=== PATIENT | male | born 1955 ===

== ENCOUNTER 2023-02-06 11:03 | Outpatient (AMB) | payer MEDICARE, OTHER, SELFPAY ==
--- NOTE | 2023-02-05 14:50 | ...WebTmpl.AM.PHNO ---
PHQ-9 Over the last 2 weeks, how often have you been bothered by any of the following problems? 1. Little interest or pleasure in doing things: not at all 2. Feeling down, depressed, or hopeless: not at all 3. Trouble falling or staying asleep, or sleeping too much: not at all 4. Feeling tired or having little energy: not at all 5. Poor appetite or overeating: not at all 6. Feeling bad about yourself - or that you are a failure or have let yourself or your family down: not at all 7. Trouble concentrating on things, such as reading the newspaper or watching television: not at all 8. Moving or speaking so slowly that other people could have noticed. Or the opposite - being so fidgety or restless that you have been moving around a lot more than usual: not at all 9. Thoughts that you would be better off or of hurting yourself in some way: not at all Total score: 0 Depression Screening Interpretation: Negative Source: Developed by Drs. Manjinder Avila, Walter Ruby and colleagues, with an educational sanjeev from [employer]. LEANDRO-7 AMB Questionnaire LEANDRO-7 Date LEANDRO - 7 assessed: 02/05/23 Feeling nervous, anxious, or on edge: 0 = Not at all Not being able to stop or control worryin = Not at all Worrying too much about different things: 0 = Not at all Trouble relaxin = Not at all Being so restless that it is hard to sit still: 0 = Not at all Becoming easily annoyed or irritable: 0 = Not at all Feeling afraid as if something awful might happen: 0 = Not at all Total LEANDRO-7 score (0-4 normal; 5-9 mild; 10-14 moderate; 15-21 severe): 0 Source: Developed by Drs. Manjinder Avila, Walter Ruby and colleagues, with an educational sanjeev from [employer]. Thrive Questionnaire Date Thrive assessed: 02/05/23 I am a: Patient What is your living situation today?: I have a steady place to live Within the past 12 months, did the food you bought not last and you didn't have the money to get more?: Never true Within the past 12 months, did you worry whether your food would run out before you got money to buy more?: Never true Do you have trouble paying for medicines?: No Do you have trouble getting transportation to medical appointments?: No Do you have trouble paying your heating and electricity bill?: No Do you have trouble taking care of your child, family member or friend?: No Do you have trouble with day-to-day activities such as bathing, preparing meals, shopping, managing finances, etc.?: No Are you currently unemployed and looking for a job?: No Are you interested in more education?: No Please select the resources that you would like help with: None Currently or been in a relationship where the following occur: no concerns reported
--- NOTE | 2023-02-06 11:13 | MHC.PC.OV ---
Vital Signs 02/06/23 11:14 Height 6 ft Weight 267 lb 8 oz BMI 36.3 BP 120/80 Blood Pressure Location Rt brachial Position Sitting Respiration 12 Pulse 90 Pulse Source Pulse Oximeter Temp 97.9 F Temp Source Temporal Artery Scan Pulse Oximetry (%) 98 Oxygen Delivery Method Room Air Intake Visit Reasons: est care Intake Note: Patient states that he had a ruptured disk 2 months ago and would like an order for an MRI put in. Patient states he hasnt seen primary care in almost 10 years. Patient states that he would also be interested in PT as well and use to do PT before. Flare Breaker Required: No Accompanied by: Self / Same As Patient Allergies No Known Allergies Allergy (Verified 02/06/23 11:54) Medication List - Last Reconciled 02/06/23 by Nani Porras CNP isosorbide mononitrate ER 30 mg PO DAILY lisinopril 2.5 mg PO DAILY Tobacco use date assessed: 02/06/23 Fall risk assessment: No Falls in past year Last assessed Fall Risk: 02/06/23 Dental Screening Dental Screen Date: 02/06/23 Did you have a dental visit in the last 12 months?: Yes Did you have a dental problem in the last 6 months where you did not have access to dental care?: No Was dental information given to patient?: Patient has dentist HPI HPI Comments History of Present Illness Details 67-year-old male presents to [facility] care He notes he states he was last seen by his former PCP and had blood work done in almost 10 years He reports PMH significant for HTN and CAD with stent placement 9 years ago. He reports h/o ruptured L2 and L3. He notes that he started experiencing pain to his lumbar spin when loading a motorcycle in a pickup truck 2 months ago. He notes he had PT x 4 weeks with significant improvement. He requests a new PT referral. He reports associated numbness ot his RLE. He denies pain at this time. [facility] Medical History (Updated 02/06/23 @ 12:12 by Nani Porras CNP) High blood pressure No pertinent past medical history Presence of stent in LAD coronary artery Surgical History (Updated 02/06/23 @ 11:30 by Marylin Fu MA) History of coronary artery stent placement No pertinent past surgical history Family History (Updated 02/06/23 @ 11:27 by Marylin Fu MA) Maternal Grandmother Diabetes Mother Cancer Social History Housing: House Patient Tobacco Use Status: Never used Tobacco service: Yes Current occupational status: retired Cognitive needs: No Hearing needs: No Vision needs: No Questionnaire PHQ-9 Over the last 2 weeks, how often have you been bothered by any of the following problems? 1. Little interest or pleasure in doing things: not at all 2. Feeling down, depressed, or hopeless: not at all 3. Trouble falling or staying asleep, or sleeping too much: not at all 4. Feeling tired or having little energy: not at all 5. Poor appetite or overeating: not at all 6. Feeling bad about yourself - or that you are a failure or have let yourself or your family down: not at all 7. Trouble concentrating on things, such as reading the newspaper or watching television: not at all 8. Moving or speaking so slowly that other people could have noticed. Or the opposite - being so fidgety or restless that you have been moving around a lot more than usual: not at all 9. Thoughts that you would be better off or of hurting yourself in some way: not at all Total score: 0 Depression Screening Interpretation: Negative Source: Developed by Drs. Manjinder Avila, Elma Richey, Walter Patel and colleagues, with an educational sanjeev from [employer]. Thrive Questionnaire Date Thrive assessed: 02/06/23 I am a: Patient What is your living situation today?: I have a steady place to live Within the past 12 months, did the food you bought not last and you didn't have the money to get more?: Never true Within the past 12 months, did you worry whether your food would run out before you got money to buy more?: Never true Do you have trouble paying for medicines?: No Do you have trouble getting transportation to medical appointments?: No Do you have trouble paying your heating and electricity bill?: No Do you have trouble taking care of your child, family member or friend?: No Do you have trouble with day-to-day activities such as bathing, preparing meals, shopping, managing finances, etc.?: No Are you currently unemployed and looking for a job?: No Are you interested in more education?: No Please select the resources that you would like help with: None Currently or been in a relationship where the following occur: no concerns reported AUDIT C Alcohol Use Questionnaire (AUDIT-C) 1. How often do you have a drink containing alcohol?: Monthly or less 2. How many drinks containing alcohol do you have on a typical day when you are drinking?: 1 or 2 3. How often do you have six or more drinks on one occasion?: Never Total Score: 1 LEANDRO-7 AMB Questionnaire LEANDRO-7 Date LEANDRO - 7 assessed: 02/06/23 Feeling nervous, anxious, or on edge: 0 = Not at all Not being able to stop or control worryin = Not at all Worrying too much about different things: 0 = Not at all Trouble relaxin = Not at all Being so restless that it is hard to sit still: 0 = Not at all Becoming easily annoyed or irritable: 0 = Not at all Feeling afraid as if something awful might happen: 0 = Not at all Total LEANDRO-7 score (0-4 normal; 5-9 mild; 10-14 moderate; 15-21 severe): 0 Source: Developed by Drs. Manjinder Avila, Elma Richey, Walter Patel and colleagues, with an educational sanjeev from [employer]. Review of Systems Const Details: Const Denies chills, Denies fatigue, Denies fever(s), Denies headache(s) and Denies weakness ENT Denies dizziness and Denies headache(s) Card Denies chest pain, Denies lightheadedness, Denies dyspnea and Denies other (Palpitations) Resp Denies cough, Denies dyspnea, Denies wheezing and Denies other ( shortness of breath) GI Denies abdominal pain, Denies melena, Denies hematochezia, Denies change in bowel habits, Denies dyspepsia and Denies nausea Denies hematuria and Denies dysuria Musc Denies abnormal gait, Denies myalgias, Denies arthralgias, Reports numbness and Denies tingling Skin/Breast Denies rash, Denies unusual bruising and Denies wounds Neuro Denies abnormal gait, Denies dizziness, Denies headache(s), Denies memory loss, Reports numbness, Denies Sensory deficit (Neuro), Denies tingling and Denies weakness Psych Denies anxiety, Denies depression, Denies memory loss Endo Denies cold intolerance, Denies fatigue, Denies heat intolerance, Denies polydipsia and Denies polyuria Aller/Immun Denies wheezing Physical exam (Primary Care) Vital Signs: Last Vital Signs Temp 97.9 F 02/06/23 11:14 Pulse 90 02/06/23 11:14 Resp 12 02/06/23 11:14 BP 120/80 02/06/23 11:14 Pulse Ox 98 02/06/23 11:14 Oxygen Delivery Method Room Air 02/06/23 11:14 BMI result Body Mass Index 36.3 Tobacco/Smoking Status: Tobacco use Status Tobacco use date assessed 02/06/23 02/06/23 11:25 Patient Tobacco Use Status Never used Tobacco 02/06/23 11:25 PHQ-9: PHQ-9 Score PHQ-9: Total score 0 02/06/23 11:25 Depression Screening Interpretation: Negative Thrive Assessment: Date of Thrive Assessment Date Thrive assessed 02/06/23 02/06/23 11:25 Currently or been in a relationship where the following occur: no concerns reported Const Other: General: no acute distress and well developed Nutritional Appearance: well nourished Orientation/consciousness: patient oriented x3 HENMT Head: Yes normocephalic and Yes atraumatic Eyes General: appearance normal, both eyes and all related structures Pupils: Equal, round and reactive pupils present EOM: EOMs intact bilaterally Resp Effort & Inspection: normal respiratory effort Auscultation: clear to auscultation bilaterally Cardio Rate: regular rate Rhythm: regular rhythm Heart sounds: S1 normal heart sound present, S2 normal heart sound present, no gallops, no murmurs and no rubs GI Palpation (GI): No Abdominal aortic bruit present, Soft to palpation, nontender, No hepatosplenomegaly present and No Rebound tenderness present Auscultation: normal bowel sounds General: Yes no CVA tenderness Back/Spine/Pelvis Back: no CVA tenderness Cervical Spine: cervical ROM normal and No Cervical spine tenderness Thoracic/Lumbar Spine: thoraco-lumbar ROM normal, No pain with thoraco-lumbar ROM, No thoracic spinal tenderness and No lumbar spinal tenderness Extrem General: Yes normal to inspection, No edema and No calf tenderness Skin General: warm and dry. Normal skin color. Normal skin turgor Lesions: no lesions Rashes: no rashes Trauma: no lacerations or abrasions Wounds: no wounds Nails: normal Neuro General: patient oriented x3, gait normal and no focal neuro deficit Cranial nerves: Yes Equal, round and reactive pupils present Cognition (Neuro): normal cognition Gait exam (Neuro): Normal gait present Sensory Exam: No Sensory deficit (Neuro) Psych Appearance: grossly normal Affect: normal affect Attitude: cooperative Thought process: Normal thought process present Assessment and Plan Assessment & Plan (1) Low back pain: Code(s): M54.50 - Low back pain, unspecified Plan: Reports h/o ruptured L2 and L3. He notes that he started experiencing pain to his lumbar spin when loading a motorcycle in a pickup truck 2 months ago. He notes he had PT x 4 weeks with significant improvement. He requests a new PT referral. He reports associated numbness ot his RLE. He denies pain at this time. Normal exam X-ray of lumbar spine ordered Referred to PT and Orthopedic surgery May take Tylenol ibuprofen for pain or discomfort Follow-up with worsening or new symptoms Verbalized understanding and agreed with treatment plan. (2) High blood pressure: Code(s): I10 - Essential (primary) hypertension Plan: Blood pressure is 120/80, within goal of less than 130/80 Continue take isosorbide mononitrate and lisinopril as prescribed Low-sodium diet encouraged Follow-up in 1 month for complete physical exam Return sooner with symptoms or concerns Verbalized understanding and agreed with treatment plan. (3) Laboratory tests ordered as part of a complete physical exam (CPE): Code(s): Z00.00 - Encounter for general adult medical examination without abnormal findings Plan: Fasting labs ordered as part of a complete physical exam. Advised to fast for at least 10 hours before getting labs drawn. May drink water Verbalized understanding and agreed with treatment plan. Orders: Orders Comprehensive Timblin. Panel Fast Today Z00.00 - Encounter for general adult medical examination without abnormal findings Lipid Panel Today Z00.00 - Encounter for general adult medical examination without abnormal findings TSH reflex Free T4 Today Z00.00 - Encounter for general adult medical examination without abnormal findings Complete Blood Count Auto Diff Today Z00.00 - Encounter for general adult medical examination without abnormal findings UA CC w/rflx Micro + Cult Today Z00.00 - Encounter for general adult medical examination without abnormal findings PT Evaluation and Treatment Today M54.50 - Low back pain, unspecified XR lumbar spine 2-3V Today M54.50 - Low back pain, unspecified PSA, Ultra Sensitive Today Z00.00 - Encounter for general adult medical examination without abnormal findings Referrals Orthopedics Referral M54.50 - Low back pain, unspecified Coding Level of Care Code New Pt Level 3 (48936) Diagnoses Low back pain M54.50 High blood pressure I10 Laboratory tests ordered as part of a complete physical exam (CPE) Z00.00
[2023-02-06 11:14] VITALS: BP 120/80; PULSE 90; RESP 12; TEMP 36.6; O2SAT 98; BMI 36.3
== END 2023-02-06 12:13 | disposition home or self-care (01) ==
PROVIDERS: Visit Provider Nurse Practitioner Family
DX: M54.50 Low back pain, unspecified (principal); I10 Essential (primary) hypertension; Z00.00 Encounter for general adult medical examination without abnormal findings
CPT/HCPCS: 99203

== ENCOUNTER 2023-02-07 09:44 | Outpatient (REF) | payer MEDICARE, OTHER, SELFPAY ==
--- NOTE | ~2023-02-07 | XR_ITS ---
EXAMINATION: XR LUMBOSACRAL SPINE CLINICAL INFORMATION: Lower back pain. COMPARISON: None available. TECHNIQUE: AP and lateral views of the lumbar spine and lateral view of the lumbosacral junction. FINDINGS: There is bony demineralization. There is a slight lumbar levoscoliosis. At L5-S1, there is moderate disc space narrowing. The remaining disc spaces are relatively well-maintained. No acute fracture or spondylolisthesis is seen. There is multi-level thoracolumbar spondylosis. There is facet arthropathy, most pronounced at L5-S1. There are aortoiliac atherosclerotic calcifications. XR/XR lumbar spine 2-3V IMPRESSION: 1. There is moderate degenerative disc disease at L5-S1. 2. There is multi-level mild lumbar spondylosis. 3. Facet arthropathy is most pronounced at L5-S1. 4. There is a slight lumbar levoscoliosis.
[2023-02-07 13:18] LABS: MANUAL DIFF FLAG NO
[2023-02-07 13:51] LABS: Basophils Percent Auto 0.3 % (0-2); Eosinophils Absolute Auto 0.2 X10*3/uL (0.0-0.4); Eosinophils Percent Auto 3.6 % (0-4); Hematocrit 42.1 % (42.0-52.0); Imm Gran Abs Auto 0.02 X10*3/uL (0.00-0.03); Imm Gran Pct Auto 0.3 % (0.0-0.4); Lymphocytes Absolute Auto 1.9 X10*3/uL (1.2-4.9); Lymphocytes Percent Auto 30.1 % (20-40); Mean Corpuscular HGB Conc 33.3 g/dl (31.0-36.0); Mean Corpuscular Hemoglobin 30.4 pg (27.0-33.0); Mean Corpuscular Volume 91.5 fL (80.0-98.0); Mean Platelet Volume 9.6 fL (9.4-12.4); Monocytes Absolute Auto 0.7 X10*3/uL (0.1-1.2); Monocytes Percent Auto 10.7 % (2-11); Neutrophils Absolute Auto 3.4 x10*3/uL (2.0-8.3); Platelet Count 322 X10*3/uL (160-400); Red Cell Distribution Width 13.2 % (11.0-16.0); White Blood Count 6.2 X10*3/uL (4.8-10.8)
[2023-02-07 14:05] LABS: Appearance Urine Turbid; Color Urine Yellow; Glucose Urine UA Negative (Negative); Leukocyte Esterase Urine Negative (Negative); Nitrite Urine Negative (Negative); PH 5.5 (5.0-9.0); Urine Blood Negative (Negative); Urine Ketones Negative (Negative); Urine Protein Negative (Neg-Trace)
[2023-02-07 14:30] LABS: Alanine Aminotransferase 27 U/L (0-40); Albumin Level 4.3 g/dL (3.5-5.0); Alkaline Phosphatase 62 U/L (39-117); Anion Gap 12 (12-20); Aspartate Amino Transferase 23 U/L (5-37); Bilirubin Total 0.5 mg/dL (0.0-1.0); Blood Urea Nitrogen 15 mg/dL (9-16); Carbon Dioxide 26 mmol/L (22-29); Chloride 106 mmol/L (96-108); Cholesterol 263 mg/dL (<200); Estimated Glomerular Filt Rate > 60; Glucose Fasting 104 mg/dL (60-99); HDL Cholesterol 47 mg/dL (>40); LDL Cholesterol Calculated 186 mg/dL (<100); Potassium 4.4 mmol/L (3.3-5.1); Sodium 140 mmol/L (135-145); Total Protein 7.3 g/dL (6.5-8.0); Triglycerides 150 mg/dL (<150)
[2023-02-07 14:34] LABS: TSH reflex Free T4 1.13 uIU/mL (0.32-4.0)
[2023-02-11 20:14] LABS: PSA, Ultra Sensitive 0.07 ng/mL
== END 2023-02-07 09:45 | disposition home or self-care (01) ==
LOC: HO.HMGCX 09:44
PROVIDERS: Visit Provider Nurse Practitioner Family
DX: M54.50 Low back pain, unspecified (principal); Z00.00 Encounter for general adult medical examination without abnormal findings; Z12.5 Encounter for screening for malignant neoplasm of prostate
CPT/HCPCS: 36415; 72100; 80053; 80061; 81003; 84153; 84443; 85025

== ENCOUNTER 2023-02-21 09:24 | Outpatient (AMB) | payer MEDICARE, OTHER, SELFPAY ==
[2023-02-21 09:39] VITALS: BMI 36.2
--- NOTE | 2023-02-21 09:39 | A.OFFVIS_ITS ---
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 States pain started in November 29, 2022 while getting out of a car in [place]. States his bad had locked and had to crawl. States he was seen with a chiropractor and was told he had a rupture disc. Attend P.T for about 3 weeks with no improvement. Currently he is better. He still has difficulty from sit to stand and nerve pain in his right leg. Allergies No Known Allergies Allergy (Verified 02/21/23 09:48) Medication List - Last Reconciled 02/21/23 by Viky Xiao MD isosorbide mononitrate ER 30 mg PO DAILY lisinopril 2.5 mg PO DAILY HPI HPI Comments History of Present Illness Details 25 years ago, had lifting injury and teresa t his back. No imaging. Got better and was doing well up until November 2022. He was crawling from pain. Was more right sided. With PT, 1st session in December, started having right leg pain with weakness. Severe for 3 weeks. Needed a cane, would give out and felt like nerve pain . Slightly better now, unless comfortable sleeping. Is walking better. No bladder/bowel changes. No numbness. Was not able to do further PT. Tried NSAIDs and muscle relaxers. [facility] Medical History (Updated 02/21/23 @ 10:23 by Viky Xiao MD) Presence of stent in LAD coronary artery High blood pressure No pertinent past medical history Surgical History (Updated 02/06/23 @ 11:30 by Marylin Fu MA) History of coronary artery stent placement No pertinent past surgical history Family History (Updated 02/06/23 @ 11:27 by Marylin Fu MA) Maternal Grandmother Diabetes Mother Cancer Social History Housing: House Patient Tobacco Use Status: Never used Tobacco service: Yes Current occupational status: retired Cognitive needs: No Hearing needs: No Vision needs: No Review of Systems Const All systems reviewed & are unremarkable except as noted in HPI and below Physical Exam Vital Signs: BMI result Body Mass Index 36.2 Constitutional: Patient appears to be in no acute distress, well nourished and well developed. Patient was appropriately conversant and oriented. Good historian. MSK: No specific abnormalities found on inspection of the spine and all extremities. No pain with palpation over the lumbar area. SI and GT nontender. Lumbar ROM was full. Bilateral hip, knee and ankle ROM WNL. No ligamentous laxity or crepitance. No increased effusion. Straight-leg raising test positive on right, positive crossover from left. FABERE test bilateral contributed the right thigh pain. Strength is 5/5 in all muscle groups tested. No increased tone noted. Neurological: Neurologic examination of the upper and lower extremities was nonfocal with intact sensation, muscle stretch reflexes and without focal motor deficits . Ortiz?s negative bilaterally. Babinski was down going bilaterally. Clonus was negative. Gait is non-antalgic without loss of balance. Able to stand on heels and toes with support. 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 Pain has somewhat subsided. Improved functional and gait level. However still signs of nerve impingement on exam. No other neurological deficits. It would be reasonable to obtain a lumbar MRI to evaluate are confirm presence of disc herniation L5-S1. It will help us with prognosis, guidance for physical therapy, determine need for injection and/or surgery. MR order placed. Assessment and plan discussed with patent, and patient was agreeable. All questions were answered thoroughly. Follow-up after MRI. Orders: Orders MR lumbar spine wo con Today M51.26 - Other intervertebral disc displacement, lumbar region, M51.36 - Other intervertebral disc degeneration, lumbar region, M54.16 - Radiculopathy, lumbar region Coding Level of Care Code New Pt Level 4 (91866) Diagnoses Lumbar radiculitis M54.16 Degeneration of lumbar intervertebral disc with acute herniation M51.36; M51.26
== END 2023-02-21 10:13 | disposition home or self-care (01) ==
PROVIDERS: Visit Provider Physical Medicine & Rehabilitation
DX: M54.16 Radiculopathy, lumbar region (principal); M51.36 Other intervertebral disc degeneration, lumbar region; M51.26 Other intervertebral disc displacement, lumbar region
CPT/HCPCS: 99204

== ENCOUNTER → 2023-02-21 09:24 | Outpatient (BNVA) | payer MEDICARE, OTHER, SELFPAY | PROVIDERS: Visit Provider Physical Medicine & Rehabilitation ==

== ENCOUNTER 2023-03-12 19:19 | Outpatient (REF) | payer MEDICARE, OTHER, SELFPAY ==
--- NOTE | ~2023-03-12 | MR_ITS ---
EXAMINATION: MR LUMBAR SPINE WITHOUT CONTRAST CLINICAL INFORMATION: Radiculopathy, evaluate for L5-S1 right-sided disc herniation. COMPARISON: None TECHNIQUE: MRI of the lumbar spine was obtained using routine sequences without contrast. FINDINGS: Mild leftward curvature of the lower lumbar spine. Lumbar straightening. No significant spondylolisthesis No suspicious marrow signal or focal osseous lesion. Mild edema along the right L4 superior endplate associated with a small Schmorl's node. The vertebral body heights are maintained. Multilevel disc desiccation and height loss. The conus medullaris terminates at the level of L1. The distal spinal cord is normal in appearance. The cauda equina nerve roots appear normal. No significant abnormalities of the paraspinal musculature. Limited evaluation of the intra-abdominal structures without significant abnormalities. The abdominal aorta is of normal contour and caliber. SPINAL LEVELS: L1-L2: No significant spinal canal or neuroforaminal narrowing. Minimal disc bulge. L2-L3: No significant spinal canal or neuroforaminal narrowing. Shallow disc bulge. L3-L4: Broad-based disc bulge with superimposed right subarticular protrusion which compresses the traversing right L4 nerve root. Mild facet arthropathy. No significant central spinal canal stenosis. Mild right neural foraminal narrowing. L4-L5: Broad-based disc bulge with right foraminal and extraforaminal protrusion, mild facet arthropathy. No significant central spinal canal stenosis. Bilateral subarticular zone narrowing. Mild left and moderate right neural foraminal narrowing with possible impingement of the exiting right L4 nerve root. L5-S1: Left eccentric disc osteophyte complex with far left lateral component and mild facet arthropathy. No significant central spinal canal stenosis. Moderate left neural foraminal narrowing with impingement of the extraforaminal left L5 nerve root MR/MR lumbar spine wo con IMPRESSION: 1. At L3-L4, a right subarticular disc protrusion compresses the traversing right L4 nerve root. 2. At L4-L5, a right foraminal and extraforaminal disc protrusion results in moderate right neural foraminal narrowing with possible impingement of the exiting right L4 nerve root. 3. At L5-S1, a left eccentric disc osteophyte complex results in moderate left neural foraminal narrowing with impingement of the extraforaminal left L5 nerve root.
== END 2023-03-12 19:20 | disposition home or self-care (01) ==
LOC: HO.MRI 19:19
PROVIDERS: Visit Provider Physical Medicine & Rehabilitation
DX: M54.16 Radiculopathy, lumbar region (principal); M51.36 Other intervertebral disc degeneration, lumbar region; M51.26 Other intervertebral disc displacement, lumbar region
CPT/HCPCS: 72148

== ENCOUNTER 2023-04-11 10:00 | Outpatient (AMB) | payer MEDICARE, OTHER, SELFPAY ==
--- NOTE | 2023-04-11 10:13 | MHC.OFFVIS ---
Intake Vital Signs 04/11/23 10:15 Height 6 ft Weight 267 lb BMI 36.2 Intake Visit Reasons: O/V Lumbar MRI review Intake Note: Isaiah 67 yr old male presents today for his MRI review. Allergies No Known Allergies Allergy (Verified 04/11/23 10:15) HPI HPI Comments History of Present Illness Details 25 years ago, had lifting injury and hurt his back. No imaging. Got better and was doing well up until November 2022. He was crawling from pain. Was more right sided. With PT, 1st session in December, started having right leg pain with weakness. Severe for 3 weeks. Needed a cane, would give out and felt like nerve pain . Byt the time I saw him, he was already slightly better now, less comfortable sleeping. Was walking better. No bladder/bowel changes. No numbness. Was not able to do further PT. Tried NSAIDs and muscle relaxers. Here today to discuss MRI results. Was up to 95% but had setback 2 weeks ago. Was working on daughter's car, sitting low and bending forward. Same shooting down to right leg, same numbness on right thigh down to knee. No symptoms on right foot. Good bowel/bladder control. [facility] Medical History (Updated 02/21/23 @ 10:23 by Viky Xiao MD) Presence of stent in LAD coronary artery High blood pressure No pertinent past medical history Surgical History (Updated 02/06/23 @ 11:30 by Marylin Fu MA) History of coronary artery stent placement No pertinent past surgical history Family History (Updated 02/06/23 @ 11:27 by Marylin Fu MA) Maternal Grandmother Diabetes Mother Cancer Social History Housing: House Patient Tobacco Use Status: Never used Tobacco service: Yes Current occupational status: retired Cognitive needs: No Hearing needs: No Vision needs: No Physical Exam Constitutional: Patient appears to be in no acute distress, well nourished and well developed. Patient was appropriately conversant and oriented. Good historian. Results Reviewed Results Reviewed: Ordering Physician: Viky Lewis Date of Service: 03/12/23 Procedure(s): MR lumbar spine wo con Accession Number(s): [id number] cc: Viky Lewis~ EXAMINATION: MR LUMBAR SPINE WITHOUT CONTRAST CLINICAL INFORMATION: Radiculopathy, evaluate for L5-S1 right-sided disc herniation. COMPARISON: None TECHNIQUE: MRI of the lumbar spine was obtained using routine sequences without contrast. FINDINGS: Mild leftward curvature of the lower lumbar spine. Lumbar straightening. No significant spondylolisthesis No suspicious marrow signal or focal osseous lesion. Mild edema along the right L4 superior endplate associated with a small Schmorl's node. The vertebral body heights are maintained. Multilevel disc desiccation and height loss. The conus medullaris terminates at the level of L1. The distal spinal cord is normal in appearance. The cauda equina nerve roots appear normal. No significant abnormalities of the paraspinal musculature. Limited evaluation of the intra-abdominal structures without significant abnormalities. The abdominal aorta is of normal contour and caliber. SPINAL LEVELS: L1-L2: No significant spinal canal or neuroforaminal narrowing. Minimal disc bulge. L2-L3: No significant spinal canal or neuroforaminal narrowing. Shallow disc bulge. L3-L4: Broad-based disc bulge with superimposed right subarticular protrusion which compresses the traversing right L4 nerve root. Mild facet arthropathy. No significant central spinal canal stenosis. Mild right neural foraminal narrowing. L4-L5: Broad-based disc bulge with right foraminal and extraforaminal protrusion, mild facet arthropathy. No significant central spinal canal stenosis. Bilateral subarticular zone narrowing. Mild left and moderate right neural foraminal narrowing with possible impingement of the exiting right L4 nerve root. L5-S1: Left eccentric disc osteophyte complex with far left lateral component and mild facet arthropathy. No significant central spinal canal stenosis. Moderate left neural foraminal narrowing with impingement of the extraforaminal left L5 nerve root MR/MR lumbar spine wo con IMPRESSION: 1. At L3-L4, a right subarticular disc protrusion compresses the traversing right L4 nerve root. 2. At L4-L5, a right foraminal and extraforaminal disc protrusion results in moderate right neural foraminal narrowing with possible impingement of the exiting right L4 nerve root. 3. At L5-S1, a left eccentric disc osteophyte complex results in moderate left neural foraminal narrowing with impingement of the extraforaminal left L5 nerve root. 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 Discrete right-sided disc herniation seen on L3-4, more broad-based disc bulge L4-5 but with lateral extension to right side. Both close to the right L4 nerve root. This is consistent with symptoms right-sided back pain that radiates to right thigh/knee. More broad-based disc bulge L5-S1, going to the left side. Patient denies any symptoms on the left side or to his feet. He knows/understands what activities to avoid so as not to exacerbate his symptoms. He also knows how to modify his activities and rest. He says he is comfortable currently, not in severe pain. Discussed briefly possible injection but he does not think he needs it at this time. I do not see any urgency to refer to neurosurgery. He can take NSAIDs as needed. If severe pain, we can consider oral prednisone short burst. Since he has tolerated meloxicam in the past, will refill meloxicam 7.5 mg daily p.r.n.. Will give 30 tablets which I think he will take sparingly. Always take with full stomach. Other side effects and black box warnings discussed. Assessment and plan discussed with patient, and patient was agreeable. All questions were answered thoroughly. Follow-up as needed. Patient will call for issues. 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
[2023-04-11 10:15] VITALS: BMI 36.2
== END 2023-04-11 10:48 | disposition home or self-care (01) ==
PROVIDERS: PCP Nurse Practitioner Family; Visit Provider Physical Medicine & Rehabilitation
DX: M51.36 Other intervertebral disc degeneration, lumbar region (principal); M51.26 Other intervertebral disc displacement, lumbar region
CPT/HCPCS: 99214

== ENCOUNTER → 2023-04-11 10:00 | Outpatient (BNVA) | payer MEDICARE, OTHER, SELFPAY | PROVIDERS: PCP Nurse Practitioner Family; Visit Provider Physical Medicine & Rehabilitation | DX: M51.36 Other intervertebral disc degeneration, lumbar region (principal); M51.26 Other intervertebral disc displacement, lumbar region | CPT/HCPCS: 99212 ==

== ENCOUNTER 2023-06-20 08:55 | Outpatient (AMB) | payer MEDICARE, OTHER, SELFPAY ==
--- NOTE | 2023-06-20 08:58 | MHC.OFFVIS ---
Intake Vital Signs 06/20/23 08:59 Height 6 ft Weight 267 lb BMI 36.2 Intake Visit Reasons: New Prob - right leg pain Intake Note: Isaiah 67 yr old male presents today for a new problem visit for his right leg pain. Patient has been seen prior with Dr. Lewis for lumbar pain. Patient reports his pain is in the front and back of his leg. Describe his pain as nerve pain and muscle cramping. Denies numbness or tingling. Also mentioned he feels like his hip isn't align. Seen with a Chiropractor who mentioned this could be O.A. Denies recent fall or injury. Allergies No Known Allergies Allergy (Verified 06/20/23 09:02) Medication List - Last Reconciled 06/20/23 by Viky Xiao MD isosorbide mononitrate ER 30 mg PO DAILY lisinopril 2.5 mg PO DAILY meloxicam 7.5 mg PO DAILY PRN HPI HPI Comments History of Present Illness Details 25 years ago, had lifting injury and hurt his back. No imaging. Got better and was doing well up until November 2022. He was crawling from pain. Was more right sided. With PT, 1st session in December, started having right leg pain with weakness. Severe for 3 weeks. Needed a cane, would give out and felt like nerve pain . By the time I saw him, he was already slightly better now, less comfortable sleeping. Was walking better. No bladder/bowel changes. No numbness. MRI done 03/12/23. Discrete right-sided disc herniation seen on L3-4, more broad-based disc bulge L4-5 but with lateral extension to right side. Both close to the right L4 nerve root. More broad-based disc bulge L5-S1, going to the left side. Last seen in March, symptoms consistent with MRI; right-sided back pain that radiates to right thigh/knee; Patient denied any symptoms on the left side or to his feet. Since then, he says symptoms never got better completely. He denies pain but describes sensation to right thigh. By April, symptoms became severe again but he kept to it, sometimes improved and sometimes worse. He did see a chiropractor twice. He has since noted that right hip is higher than left. He has difficulty laying down, when he has to get up from bed it is very painful. No symptoms on right foot. Good bowel/bladder control. [facility] Medical History (Updated 06/20/23 @ 09:57 by Viky Xiao MD) Presence of stent in LAD coronary artery High blood pressure No pertinent past medical history Surgical History (Updated 02/06/23 @ 11:30 by Marylin Fu MA) History of coronary artery stent placement No pertinent past surgical history Family History (Updated 02/06/23 @ 11:27 by Marylin Fu MA) Maternal Grandmother Diabetes Mother Cancer Social History (Updated 06/20/23 @ 09:03 by Yolanda Alvarenga [facility]) Housing: House Patient Tobacco Use Status: Never used Tobacco service: Yes Current occupational status: retired 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 Patient was appropriately conversant and oriented. Good historian. MSK: No specific abnormalities found on inspection of the spine and all extremities. No pain with palpation over the lumbar area. SI and GT nontender. Lumbar ROM was full. He has difficulty with ranging right hip; has to manually lift right leg on the bed. Straight-leg raising test seemed negative but had to very careful. Right fabere was difficult to do due to pain on thigh but he denied hip or groin pain. Right hip higher than left. Neurological: Weaker on right hip flexion and knee extension 4/5 at the most. No increased tone noted. No hyperreflexia. Ortiz?s negative bilaterally. Babinski was down going bilaterally. Clonus was negative. Gait is antalgic without loss of balance. Results Reviewed Results Reviewed: Ordering Physician: Viky Lewis Date of Service: 03/12/23 Procedure(s): MR lumbar spine con Accession Number(s): [id number] cc: Viky Lewis~ EXAMINATION: MR LUMBAR SPINE WITHOUT CONTRAST CLINICAL INFORMATION: Radiculopathy, evaluate for L5-S1 right-sided disc herniation. COMPARISON: None TECHNIQUE: MRI of the lumbar spine was obtained using routine sequences without contrast. FINDINGS: Mild leftward curvature of the lower lumbar spine. Lumbar straightening. No significant spondylolisthesis No suspicious marrow signal or focal osseous lesion. Mild edema along the right L4 superior endplate associated with a small Schmorl's node. The vertebral body heights are maintained. Multilevel disc desiccation and height loss. The conus medullaris terminates at the level of L1. The distal spinal cord is normal in appearance. The cauda equina nerve roots appear normal. No significant abnormalities of the paraspinal musculature. Limited evaluation of the intra-abdominal structures without significant abnormalities. The abdominal aorta is of normal contour and caliber. SPINAL LEVELS: L1-L2: No significant spinal canal or neuroforaminal narrowing. Minimal disc bulge. L2-L3: No significant spinal canal or neuroforaminal narrowing. Shallow disc bulge. L3-L4: Broad-based disc bulge with superimposed right subarticular protrusion which compresses the traversing right L4 nerve root. Mild facet arthropathy. No significant central spinal canal stenosis. Mild right neural foraminal narrowing. L4-L5: Broad-based disc bulge with right foraminal and extraforaminal protrusion, mild facet arthropathy. No significant central spinal canal stenosis. Bilateral subarticular zone narrowing. Mild left and moderate right neural foraminal narrowing with possible impingement of the exiting right L4 nerve root. L5-S1: Left eccentric disc osteophyte complex with far left lateral component and mild facet arthropathy. No significant central spinal canal stenosis. Moderate left neural foraminal narrowing with impingement of the extraforaminal left L5 nerve root MR/MR lumbar spine wo con IMPRESSION: 1. At L3-L4, a right subarticular disc protrusion compresses the traversing right L4 nerve root. 2. At L4-L5, a right foraminal and extraforaminal disc protrusion results in moderate right neural foraminal narrowing with possible impingement of the exiting right L4 nerve root. 3. At L5-S1, a left eccentric disc osteophyte complex results in moderate left neural foraminal narrowing with impingement of the extraforaminal left L5 nerve root. 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 Though it would resolve somewhat with time and rest and avoidance, symptoms always return. This time he appears to be much weaker in the right L3-4 distribution. I feel that it is reasonable to refer him to Neurosurgery for evaluation and surgical options. We did think about epidural injections as well, noting though he is diabetic. To make sure we didn't miss any hip pathology, xrays done in the office today. Independently reviewed and there was no fracture or signs of AVN. Await final reading. Discussed with Isaiah and showed him images. Assessment and plan discussed with patient, and patient was agreeable. All questions were answered thoroughly. Follow-up after Neurosurgery referral. 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
[2023-06-20 08:59] VITALS: BMI 36.2
== END 2023-06-20 09:57 | disposition home or self-care (01) ==
PROVIDERS: PCP Nurse Practitioner Family; Visit Provider Physical Medicine & Rehabilitation
DX: M51.36 Other intervertebral disc degeneration, lumbar region (principal); M51.26 Other intervertebral disc displacement, lumbar region; M54.16 Radiculopathy, lumbar region; M25.551 Pain in right hip
CPT/HCPCS: 99214

== ENCOUNTER 2023-06-20 08:55 | Outpatient (REF) | payer MEDICARE, OTHER, SELFPAY ==
--- NOTE | ~2023-06-20 | XR_ITS ---
EXAMINATION: XR HIP, RIGHT WITH AP PELVIS CLINICAL INFORMATION: Right hip pain. COMPARISON: None available. TECHNIQUE: AP and frog-leg lateral views of the right hip are submitted, together with a frontal view of the pelvis. FINDINGS: No fracture. Alignment is anatomic. The bilateral acetabular joint spaces are well-maintained. The femoral heads are smooth. Soft tissues are unremarkable. There are pelvic phleboliths. XR/XR hip RT w PEL1V IMPRESSION: Normal right hip.
== END 2023-06-20 08:56 | disposition home or self-care (01) ==
LOC: HO.HOSX 08:55
PROVIDERS: PCP Nurse Practitioner Family; Visit Provider Physical Medicine & Rehabilitation
DX: M25.551 Pain in right hip (principal); M51.36 Other intervertebral disc degeneration, lumbar region; M51.26 Other intervertebral disc displacement, lumbar region; M54.16 Radiculopathy, lumbar region
CPT/HCPCS: 73502; 99212

== ENCOUNTER 2023-06-21 14:20 | Outpatient (AMB) | payer MEDICARE, OTHER, SELFPAY ==
--- NOTE | 2023-06-21 15:07 | HO.SPINEOV ---
Intake Intake Visit Reasons: radiculopathy Allergies No Known Allergies Allergy (Verified 06/20/23 09:02) Assessment & Plan Assessment & Plan (1) Lumbar radiculopathy: Code(s): M54.16 - Radiculopathy, lumbar region Plan Dear colleague Thank you for referring Isaiha to our office today. He is a pleasant 67 year old male who comes into our office with a chief complaint of recently resolved low back pain with radicular symptoms in his right lower extremity. He recounts an inciting incident of getting out of a car in November. He states that after this incident he went to PT for 4 weeks and had some improvement, then had relapsing symptoms shortly thereafter. He states the majority of his pain is located on the top of his R thigh. He reports that he is attempted to use [id number] remedies and some prescription medications such as meloxicam to help reduce his symptoms without significant relief. He reports that weight-bearing on his right leg exacerbates his symptoms and that standing up straight gives him relief. He reports that he feels he has been gradually recovering from this injury and is slowly starting to get better, but finds frustration in the fact that he still has symptoms be that it is now 2023 and his injury happened in November of last year. PMH: Coronary artery stent placement, hypertension. Social hx: Patient does not smoke, reports no substance use. Medications: Isosorbide mononitrate, lisinopril, meloxicam. Allergies: NKDA. Physical exam: The patient has 5/5 strength in his upper and lower extremities. He reports no sensational deficits. His reflexes are 1+ hypoactive in the right patella and 2+ intact elsewhere. Straight leg raise is (-) bilaterally. (-), Ortiz's (-) clonus. Somewhat antalgic gait, favoring the left side. Patient rises from a seated position without difficulty. Imaging review: Upon review of the MRI of his lumbar spine completed here at [facility] in February, the patient is noted to have a posterior disc bulge at L3-4 that is severely impinging the right-sided exiting L4 nerve root, causing severe foraminal stenosis. He also has some left-sided foraminal stenosis at L5-S1 which is moderately impinging the exiting S1 nerve root on the left. Impression: Vaughn is a pleasant 67-year-old male who comes in today with a chief complaint of previous low back pain at the onset of injury in November of last year which has since resolved. He reports he at 1 point had severe radiculopathy down his right leg which has also been gradually improving with time. He is concerned that he is now several months out from his injury and continues to have pains on his anterior thigh terminating on or around the right knee. His history, exam, and imaging are consistent with a right-sided L4 nerve root impingement, causing L4 radiculopathy. Although this can be corrected surgically, the patient continues to gradually improve as time progresses. We discussed what a microdiskectomy on the right side would entail. He reported that he will be busy for the next few months and has a wedding he needs to attend in September. He would like to follow-up with us mid September to discuss if his symptoms have resolved they are not, at which time we could revisit this in discuss the possibility of a microdiskectomy. Of course at that time this case will need to be reviewed with Dr. Mi for a final surgical decision. Thank you for allowing us to care for your patient. The total time spent with this visit with this patient was 45 minutes reviewing history, physical exam, MRI imaging review, and implementation of treatment plan or further diagnostic testing Todd Mi MD,PhD [facility] Coding Level of Care Code New Pt Level 4 (56886) Diagnoses Lumbar radiculopathy M54.16
== END 2023-06-21 15:01 | disposition home or self-care (01) ==
PROVIDERS: PCP Nurse Practitioner Family; Referring Provider Physical Medicine & Rehabilitation; Visit Provider Physician Assistant
DX: M54.16 Radiculopathy, lumbar region (principal)
CPT/HCPCS: 99204

== ENCOUNTER → 2023-06-21 14:20 | Outpatient (BNVA) | payer MEDICARE, OTHER, SELFPAY | PROVIDERS: PCP Nurse Practitioner Family; Visit Provider Physician Assistant | DX: M54.16 Radiculopathy, lumbar region (principal) | CPT/HCPCS: 99202 ==